=== PATIENT | female | born 1985 | race Caucasian/White ===

== ENCOUNTER → 2017-06-01 10:03 | Outpatient (CLI) | payer OTHER, SELFPAY ==
[2017-06-01 11:14] LABS: Hematocrit 37.8 % (37-47); Hemoglobin 12.7 g/dl (12.0-15.0); Mean Corp Hgb Conc 33.6 g/gl (32-36); Mean Corpuscular Hgb 31.3 pg (27.0-32.0); Mean Corpuscular Volume 93.1 fL (81-99); Platelet Count 224 K/mm3 (150-450); RBC Distribution Width CV 12.4 % (11.6-14.6); RBC Distribution Width SD 41.3 fl (35.1-43.9); Red Blood Count 4.06 M/mm3 (4.2-5.4); White Blood Count 5.5 K/mm3 (4.4-11.0)
[2017-06-01 11:20] LABS: Scan Indicated on CBC? Y/N NO
[2017-06-01 11:50] LABS: AST(SGOT) 20 U/L (15-37); Alanine Aminotransfer ALT/SGPT 24 U/L (12-78); Albumin, Serum 3.8 g/dL (3.4-5.0); Alkaline Phosphatase 49 U/L (45-117); Anion Gap 9 (5-15); BUN 17 mg/dL (7-18); BUN/Creat Ratio 22.1 RATIO (10-20); Calcium,Total 8.5 mg/dL (8.5-10.1); Chloride 103 mmol/L (98-107); Creatinine, Serum 0.77 mg/dL (0.55-1.02); EST Glomerular Filtration Rate 92 mL/min (>60); Est Glom Filt Rate - Afr Amer 112 mL/min (>60); Globulin 3.9 g/dL (2.2-4.2); Glucose 83 mg/dL (70-110); Protein, Total 7.7 g/dL (6.4-8.2); Sodium Level 137 mmol/L (136-145); Thyroid Stim Hormone (TSH) 2.02 uIU/mL (0.358-3.74)
[2017-06-04 14:15] LABS: Vitamin D 1,25-Dihydroxy 30.4 pg/mL (19.9-79.3)
== END ==
PROVIDERS: Family Provider Family Medicine; PCP Family Medicine; Visit Provider Family Medicine
DX: R63.5 Abnormal weight gain (principal)
CPT/HCPCS: 36415; 80053; 82533; 82652; 84439; 84443; 85027

== ENCOUNTER → 2017-06-17 08:14 | Outpatient (CLI) | payer OTHER, SELFPAY ==
[2017-06-19 07:18] LABS: Adrenocorticotropic Hormone 21.3 pg/mL (7.2-63.3)
== END ==
PROVIDERS: Family Provider Family Medicine; PCP Family Medicine; Visit Provider Family Medicine
DX: E27.40 Unspecified adrenocortical insufficiency (principal)
CPT/HCPCS: 82024; 82533

== ENCOUNTER → 2017-08-31 07:28 | Outpatient (CLI) | payer OTHER, SELFPAY ==
[2017-08-31 08:28] LABS: Absolute Lymphocyte Count 1.24 X10^3/ul (0.83-4.51); Absolute Neutrophil Count 2.9 X10^3/uL (2.0-7.7); Basophil# 0.02 X10^3/uL; Basophil% 0.4 % (0-1); Eosinophil# 0.08 X10^3/uL; Eosinophils% 1.7 % (0-5); Hematocrit 38.9 % (37-47); Hemoglobin 12.8 g/dl (12.0-15.0); Lymphocyte # 1.24 X10^3/ul (4.0); Mean Corp Hgb Conc 32.9 g/gl (32-36); Mean Corpuscular Hgb 30.4 pg (27.0-32.0); Mean Corpuscular Volume 92.4 fL (81-99); Mean Platelet Vol. 10.7 fl (6.2-12.0); Monocyte# 0.54 X10^3/uL; Monocyte% 11.3 % (0-10); Neutrophil # 2.88 X10^3/uL (2.7-7.7); Neutrophil % 60.4 % (47-70); Platelet Count 198 K/mm3 (150-450); RBC Distribution Width CV 13.2 % (11.6-14.6); RBC Distribution Width SD 44.6 fl (35.1-43.9); Red Blood Count 4.21 M/mm3 (4.2-5.4); White Blood Count 4.8 K/mm3 (4.4-11.0)
[2017-08-31 08:29] LABS: POSITIVE COUNT NO; POSITIVE DIFFERENTIAL NO; POSITIVE MORPHOLOGY NO
[2017-08-31 09:05] LABS: ALB/GLOB Ratio 1.1 RATIO (0.9-2.4); AST(SGOT) 17 U/L (15-37); Alanine Aminotransfer ALT/SGPT 20 U/L (13-56); Albumin, Serum 3.7 g/dL (3.2-5.0); Alkaline Phosphatase 45 U/L (45-117); Anion Gap 7 (5-15); BUN 15 mg/dL (7-18); BUN/Creat Ratio 17.6 RATIO (10-20); Calcium,Total 8.4 mg/dL (8.5-10.1); Chloride 107 mmol/L (98-107); Creatinine, Serum 0.85 mg/dL (0.55-1.02); EST Glomerular Filtration Rate 82 mL/min (>60); Est Glom Filt Rate - Afr Amer 99 mL/min (>60); Estradiol 91.6 pg/mL; Follicle Stimulating Hormone 3.5 mIU/mL; Globulin 3.4 g/dL (2.2-4.2); Glucose 77 mg/dL (74-106); Luteinizing Hormone 4.4 mIU/mL; Prolactin 12.1 ng/mL; Protein, Total 7.1 g/dL (6.4-8.2); Sodium Level 137 mmol/L (136-145)
[2017-09-02 10:10] LABS: Insulin 6.9 mU/L (2.6-37.6)
[2017-09-02 16:44] LABS: Adrenocorticotropic Hormone 14.7 pg/mL (7.2-63.3); Thyroid Peroxidase AB 17 IU/mL (0-34)
[2017-09-06 12:10] LABS: 17-Hydroxyprogesterone 180 ng/dL (.)
== END ==
PROVIDERS: Family Provider Family Medicine; PCP Family Medicine; Visit Provider Internal Medicine Endocrinology, Diabetes & Metabolism
DX: R94.6 Abnormal results of thyroid function studies (principal); R63.5 Abnormal weight gain; L70.9 Acne, unspecified; E27.40 Unspecified adrenocortical insufficiency
CPT/HCPCS: 36415; 80053; 82024; 82306; 82670; 83001; 83002; 83498; 83525; 84146; 84403; 85025; 86376

== ENCOUNTER → 2017-09-11 07:56 | Outpatient (CLI) | payer OTHER, SELFPAY ==
[2017-09-11] MEDS: Cosyntropin 0.25 MG Vial IV (08:28)
[2017-09-11 08:33] VITALS: BP 113/67; PULSE 52; RESP 18; TEMP 36.2; O2SAT 100; BMI 29.5
== END ==
PROVIDERS: Family Provider Family Medicine; PCP Family Medicine; Visit Provider Internal Medicine Endocrinology, Diabetes & Metabolism
DX: E27.40 Unspecified adrenocortical insufficiency (principal)
CPT/HCPCS: 96374; 82533; A4216; J0834

== ENCOUNTER → 2018-05-21 11:59 | Outpatient (CLI) | payer OTHER, SELFPAY ==
[2018-05-21 14:32] LABS: Anion Gap 8 (5-15); BUN 16 mg/dL (7-18); BUN/Creat Ratio 17.2 RATIO (10-20); Calcium,Total 8.7 mg/dL (8.5-10.1); Chloride 102 mmol/L (98-107); Creatinine, Serum 0.93 mg/dL (0.55-1.02); EST Glomerular Filtration Rate 74 mL/min (>60); Est Glom Filt Rate - Afr Amer 89 mL/min (>60); Glucose 96 mg/dL (74-106); Sodium Level 134 mmol/L (136-145)
--- OUTSIDE RECORDS SUMMARY | 2018-07-26 08:03 | XMS RPT_ITS ---
:1985 Author Organization OHIP Care Team Providers Name Role Phone Bull Hart Attending Unavailable Bull Hart Referring Unavailable Bull Hart Primary Care Unavailable Bull Hart Attending Unavailable Bull Hart Referring Unavailable Bull Hart Primary Care Unavailable Bull Hart Attending Unavailable Bull Hart Referring Unavailable Bull Hart Primary Care Unavailable Brittanie Swann Attending Unavailable Bull Hart Primary Care Unavailable Raghunathan, Brittanie N. Attending Unavailable Ragparish, Brittanie N. 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 [facility] R63.5(ICD-10) Hospital Repository 08/31/2017 Unknown R94.6 - Abnormal Raghunathan, Active [place] results of thyroid Brittanie N. 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 LAB L501.1000 7-18 mg/dL Normal BUN 16 LAB L501.1100 0.55-1.02 mg/dL Normal CREAT,SERUM 0.93 Result Comment: The validity of the calculated GFR AND GFRAA in patients over 70 years has not been determined. Clinical correlation is essential. LAB L501.1110 >60 mL/min Normal EST GFR 74 Result Comment: Non- GFR Calc LAB L501.1115 >60 mL/min Normal EST GFR - AA 89 Result Comment: GFR Calc LAB L501.1300 10-20 RATIO Normal BUN/CRE 17.2 LAB L501.2200 8.5-10.1 mg/dL CA Normal 8.7 LAB L501.5300 136-145 mmol/L Low NA 134 LAB L501.5600 3.5-5.1 mmol/L K Normal 4.0 LAB L501.5900 98-107 mmol/L CL Normal 102 LAB L501.6100 21.0-32.0 mmol/L Normal CO2 24.0 LAB L501.6200 5-15 Normal GAP 8 Performed By: #### L500.2500 #### [facility] [address] [place], [address] CORTISOL SERUM Collected: 09/11/2017 Status: F Source: OSSEO 9:30 AM [facility] REPOSITORY Order Comment: BASELINE OR POST MEDICATION STIMULATION?: 60 Min Post MED Stimulati Time Medication Given: 0830 TYPE CODE TESTS RESULT OUT OF REFERENCE UNITS RANGE LAB L509.6000 3.09-22.40 ug/dL High CORTISOL 26.60 Result Comment: Adult (AM) 4.30 - 22.40 ug/dL Adult (PM) 3.09 - 16.66 ug/dL Performed By: #### L509.6000 #### [facility] [address] [place], [place], [address] CORTISOL SERUM Collected: 09/11/2017 Status: F Source: OSSEO 9:05 AM [facility] REPOSITORY Order Comment: Send Results To: DR. SWANN FAX [phone] Has pt arrived? Y BASELINE OR POST MEDICATION STIMULATION?: 30 Min Post MED Stimulati Time Medication Given: 0830 TYPE CODE TESTS RESULT OUT OF REFERENCE UNITS RANGE LAB L509.6000 3.09-22.40 ug/dL High CORTISOL 22.90 Result Comment: Adult (AM) 4.30 - 22.40 ug/dL Adult (PM) 3.09 - 16.66 ug/dL Performed By: #### L509.6000 #### [facility] [address] [place], [address] CBC W/DIFF, AUTOMATED Collected: 08/31/2017 Status: F Source: OSSEO 7:48 AM [facility] REPOSITORY TYPE CODE TESTS RESULT OUT OF RANGE REFERENCE UNITS LAB L100.1000 4.4-11.0 K/mm3 Normal WBC 4.8 LAB L100.1200 4.2-5.4 M/mm3 Normal RBC 4.21 LAB L100.1300 12.0-15.0 g/dl Normal HGB 12.8 LAB L100.1400 37-47 % Normal HCT 38.9 LAB L100.1500 81-99 fL Normal MCV 92.4 LAB L100.1600 27.0-32.0 pg Normal MCH 30.4 LAB L100.1700 32-36 g/gl Normal MCHC 32.9 LAB L100.1810 11.6-14.6 % Normal RDW CV 13.2 LAB L100.1820 35.1-43.9 fl High RDW SD 44.6 LAB L100.1900 150-450 K/mm3 Normal PLT 198 LAB L100.2000 6.2-12.0 fl Normal MPV 10.7 LAB L100.2100 47-70 % Normal NEUT% 60.4 LAB L100.2200 19-41 % Normal LY% 26.0 LAB L100.2300 0-10 % High MONO% 11.3 LAB L100.2400 0-5 % Normal EO% 1.7 LAB L100.2500 0-1 % Normal BASO% 0.4 LAB L100.2550 0.0-0.9 % Normal IM GRAN % 0.200 Result Comment: IG% - Immature Granulocytes (promyelocytes, myelocytes and metamyelocytes) > 1% indicates that a LEFT SHIFT is Present. LAB L100.2620 2.0-7.7 X10 3/uL Normal Absolute Neut 2.9 LAB L100.2720 0.83-4.51 X10 3/ul Normal Absolute Lymph 1.24 Performed By: #### L100.0100 #### [facility] [address] [place], [address] COMPREHENSIVE METABOLIC Collected: 08/31/2017 Status: F Source: [place] LISETH 7:41 AM [facility] REPOSITORY TYPE CODE TESTS RESULT OUT OF RANGE REFERENCE UNITS LAB L501.0100 74-106 mg/dL Normal GLU 77 Result Comment: Please note revised GLUCOSE reference range effective 2017. LAB L501.1000 7-18 mg/dL Normal BUN 15 LAB L501.1100 0.55-1.02 mg/dL Normal CREAT,SERUM 0.85 Result Comment: The validity of the calculated GFR AND GFRAA in patients over 70 years has not been determined. Clinical correlation is essential. LAB L501.1110 >60 mL/min Normal EST GFR 82 Result Comment: Non- GFR Calc LAB L501.1115 >60 mL/min Normal EST GFR - AA 99 Result Comment: GFR Calc LAB L501.1300 10-20 RATIO Normal BUN/CRE 17.6 LAB L501.1500 6.4-8.2 g/dL T Normal PROT 7.1 LAB L501.1800 3.2-5.0 g/dL Normal ALB 3.7 LAB L501.1950 2.2-4.2 g/dL Normal GLOB 3.4 LAB L501.2000 0.9-2.4 RATIO Normal A/G 1.1 LAB L501.2200 8.5-10.1 mg/dL Low CA 8.4 LAB L501.4100 15-37 U/L Normal AST 17 LAB L501.4305 45-117 U/L Normal ALK P 45 LAB L501.4405 13-56 U/L Normal ALT 20 LAB L501.4600 0.20-1.00 mg/dL T Normal BILI 0.60 LAB L501.5300 136-145 mmol/L NA Normal 137 LAB L501.5600 3.5-5.1 mmol/L K Normal 4.0 LAB L501.5900 98-107 mmol/L CL Normal 107 LAB L501.6100 21.0-32.0 mmol/L Normal CO2 23.0 LAB L501.6200 5-15 Normal GAP 7 Performed By: #### L500.4050, L3100.5125, L3100.5170, L3100.5420, L3300.1750 #### [facility] [address] [place], [address] FOLLICLE STIMULATING Collected: 08/31/2017 Status: F Source: [place] HORMONE 7:41 AM [facility] REPOSITORY TYPE CODE TESTS RESULT OUT OF RANGE REFERENCE UNITS LAB L3100.5125 mIU/mL Normal FSH 3.5 Result Comment: NORMAL REFERENCE RANGES FEMALE FOLLICULAR 2.3 - 12.6 mIU/mL MID-CYCLE PEAK 5.2 - 17.5 mIU/mL LUTEAL 1.7 - 12.9 mIU/mL POST-MENOPAUSAL ON MHT 5.9 - 72.8 mIU/mL NOT ON MHT 12.7 - 132.2 mlU/mL MALE 0.7 - 10.8 mIU/mL NEW TEST METHOD AND REFERENCE RANGES SEPTEMBER 24, 2011 Performed By: #### L500.4050, L3100.5125, L3100.5170, L3100.5420, L3300.1750 #### [facility] [address] [place], [place], [address] LUTEINIZING HORMONE Collected: 08/31/2017 Status: F Source: OSSEO 7:41 [facility] REPOSITORY TYPE CODE TESTS RESULT OUT OF RANGE REFERENCE UNITS LAB L3100.5170 mIU/mL Normal LH 4.4 Result Comment: NORMAL REFERENCE RANGES FEMALE FOLLICULAR 1.9 - 26.2 mIU/mL MID-CYCLE PEAK 22.8 - 76.1 mIU/mL LUTEAL 0.6 - 16.6 mIU/mL POST-MENOPAUSAL ON MHT 1.1 - 52.4 mIU/mL NOT ON MHT 8.6 - 61.8 mIU/mL MALE 1.2 - 10.6 mIU/mL NEW TEST METHOD AND REFERENCE RANGES SEPTEMBER 24, 2011 Performed By: #### L500.4050, L3100.5125, L3100.5170, L3100.5420, L3300.1750 #### [facility] [address] [place], [place], [address] PROLACTIN Collected: 08/31/2017 Status: F Source: OSSEO 7:41 [facility] REPOSITORY TYPE CODE TESTS RESULT OUT OF RANGE REFERENCE UNITS LAB L3100.5420 ng/mL Normal PROLACTIN 12.1 Result Comment: NORMAL REFERENCE RANGES FEMALE NON- 2.2 - 30.3 ng/mL 8.1 - 347.6 ng/mL POST-MENOPAUSAL 0.7 - 31.5 ng/mL MALE 2.5 - 17.4 ng/mL NEW TEST METHOD AND REFERENCE RANGES SEPTEMBER 24, 2011 Performed By: #### L500.4050, L3100.5125, L3100.5170, L3100.5420, L3300.1750 #### [facility] [address] [place], [address] ESTRADIOL Collected: 08/31/2017 Status: F Source: OSSEO 7:41 AM [facility] REPOSITORY TYPE CODE TESTS RESULT OUT OF RANGE REFERENCE UNITS LAB L3300.1750 pg/mL Normal ESTRADIOL 91.6 Result Comment: NORMAL REFERENCE RANGES FEMALE FOLLICULAR 21.4 - 164.8 pg/mL MID-CYCLE PEAK 49.9 - 367.2 pg/mL LUTEAL 40.2 - 259.0 pg/mL POST-MENOPAUSAL ON MHT <11.0 - 462.1 pg/mL NOT ON MHT <11.0 - 58.3 pg/mL MALE <11.0 - 52.5 pg/mL NOTE: [facility] HAS CONFIRMED THE DRUG FULVETRANT (FASLODEX) MAY CAUSE FALSELY ELEVATED ESTRADIOL RESULTS WHEN USING THIS TEST METHOD. IF PATIENT IS TAKING FULVESTRANT AN ALTERNATIVE METHOD SHOULD BE USED TO DETERMINE ESTRADIOL CONCENTRATION. Performed By: #### L500.4050, L3100.5125, L3100.5170, L3100.5420, L3300.1750 #### [facility] [address] [place], [address] VITAMIN D,25 HYDROXY Collected: 08/31/2017 Status: F Source: OSSEO 7:41 AM [facility] REPOSITORY TYPE CODE TESTS RESULT OUT OF REFERENCE UNITS RANGE LAB L506.1000 29.95-100.01 ng/mL Low Vitamin D 19.0 25-OH Result Comment: Vitamin D 25(OH) Status Range Deficiency <20 ng/mL (50nmol/L) Insuffciency 20 - 30 ng/mL (50 - 75 nmol/L) Sufficiency 30 - 100 ng/mL (75 - 250 nmol/L) Toxicity >100 ng/mL (>250 nmol/L) Performed By: #### L506.1000, L509.3000, [id number] #### [facility] [address] [place], [address] TESTOSTERONE, SERUM TOTAL Collected: 08/31/2017 Status: F Source: OSSEO 7:41 AM [facility] REPOSITORY TYPE CODE TESTS RESULT OUT OF REFERENCE UNITS RANGE LAB L509.3000 ng/dL Testosterone Normal 22.47 Result Comment: NORMAL REFERENCE RANGES MALE AGE <50 123.06 - 813.86 ng/dL MALE AGE >50 89.98 - 780.10 ng/dL FEMALE PREMENOPAUSE AGE 21 - 60 9.01 - 47.94 ng/dL FEMALE POSTMENOPAUSE AGE 45 - 89 <7.00 - 45.62 ng/dL REFERENCE RANGE AND METHODOLOGY CHANGED 04/24/2017 Performed By: #### L506.1000, L509.3000, [id number] #### [facility] [address] [place], [place], [address] INSULIN Collected: 08/31/2017 Status: F Source: OSSEO 7:41 AM [facility] REPOSITORY TYPE CODE TESTS RESULT OUT OF RANGE REFERENCE UNITS LAB [id number] 2.6-37.6 mU/L Normal Insulin 6.9 Result Comment: Please Note: INSULIN METHOD AND REFERENCE RANGE CHANGE Effective 05/16/2017. Performed By: #### L506.1000, L509.3000, [id number] #### [facility] [address] [place], [place], [address] ADRENOCORTICOTROPIC HORMONE Collected: Status: F Source: OSSEO 08/31/2017 7:41 AM [facility] REPOSITORY Order Comment: Has Patient had X-rays with Contrast this admission? N TYPE CODE TESTS RESULT OUT OF RANGE REFERENCE UNITS LAB L3300.1000 7.2-63.3 pg/mL Normal ACTH 4440 14.7 Result Comment: ACTH reference interval for samples collected between 7 and 10 AM. Performed By: #### L3300.1000, L3300.6900 #### [facility] (refer to report for specific site) refer to report for address and phone number THYROID PEROXIDASE AB Collected: 08/31/2017 Status: F Source: OSSEO 7:41 AM [facility] REPOSITORY Order Comment: Has Patient had X-rays with Contrast this admission? N TYPE CODE TESTS RESULT OUT OF RANGE REFERENCE UNITS LAB L3300.6900 0-34 IU/mL Normal TPO AB 17 7876 Result Comment: Performed at: [address] [id number] Music Journalist: Contreras Morales PhD, Phone: [phone] Performed By: #### L3300.1000, L3300.6900 #### [facility] (refer to report for specific site) refer to report for address and phone number [phone] Collected: Status: F Source: [place] 08/31/2017 7:41 AM [facility] REPOSITORY Order Comment: Has Patient had Radioactive Injection for X-ray?: N TYPE CODE TESTS RESULT OUT OF RANGE REFERENCE UNITS LAB L3100.9000 . ng/dL Normal HYDROXPROG 17 180 Result Comment: Adult Female Follicular 15 - 70 Luteal 35 - 290 This test was developed and its performance characteristics determined by [facility]. It has not been cleared or approved by the Food and Drug Administration. Performed at: [address] [id number] Music Journalist: Lc Fernández MD, Phone: [phone] Performed By: #### L3100.9000 #### [facility] (refer to report for specific site) refer to report for address and phone number CORTISOL SERUM Collected: 06/17/2017 Status: F Source: [place] 8:30 AM [facility] REPOSITORY Order Comment: Comments: AM TYPE CODE TESTS RESULT OUT OF RANGE REFERENCE UNITS LAB L509.6000 3.09-22.40 ug/dL Normal CORTISOL 9.10 Result Comment: Adult (AM) 4.30 - 22.40 ug/dL Adult (PM) 3.09 - 16.66 ug/dL Performed By: #### L509.6000 #### [facility] [address] [place] [address], [address] ADRENOCORTICOTROPIC HORMONE Collected: Status: F Source: [place] 06/17/2017 8:29 AM [facility] REPOSITORY Order Comment: Order Date: 06/04/17 Order Info: 2141-0 - ACTH Has Patient had X-rays with Contrast this admission? N Comments: AM TYPE CODE TESTS RESULT OUT OF RANGE REFERENCE UNITS LAB L3300.1000 7.2-63.3 pg/mL Normal ACTH 4440 21.3 Result Comment: ACTH reference interval for samples collected between 7 and 10 AM. Performed at: [address] [id number] Music Journalist: Contreras Morales PhD, Phone: [phone] Performed By: #### L3300.1000 #### [facility] (refer to report for specific site) refer to report for address and phone number CBC-COMPLETE BLOOD CNT Collected: 06/01/2017 Status: F Source: [place] NO DIFF 10:12 AM [facility] REPOSITORY TYPE CODE TESTS RESULT OUT OF RANGE REFERENCE UNITS LAB L100.1000 4.4-11.0 K/mm3 Normal WBC 5.5 LAB L100.1200 4.2-5.4 M/mm3 Low RBC 4.06 LAB L100.1300 12.0-15.0 g/dl Normal HGB 12.7 LAB L100.1400 37-47 % Normal HCT 37.8 LAB L100.1500 81-99 fL Normal MCV 93.1 LAB L100.1600 27.0-32.0 pg Normal MCH 31.3 LAB L100.1700 32-36 g/gl Normal MCHC 33.6 LAB L100.1810 11.6-14.6 % Normal RDW CV 12.4 LAB L100.1820 35.1-43.9 fl Normal RDW SD 41.3 LAB L100.1900 150-450 K/mm3 Normal PLT 224 LAB L100.2000 6.2-12.0 fl Normal MPV 11.0 Performed By: #### L100.0500 #### [facility] [address] [place], [address] COMPREHENSIVE METABOLIC Collected: 06/01/2017 Status: F Source: [place] PROFIL 10:12 AM [facility] REPOSITORY TYPE CODE TESTS RESULT OUT OF RANGE REFERENCE UNITS LAB L501.0100 70-110 mg/dL Normal GLU 83 LAB L501.1000 7-18 mg/dL Normal BUN 17 LAB L501.1100 0.55-1.02 mg/dL Normal 0.77 CREAT,SERUM Result Comment: The validity of the calculated GFR AND GFRAA in patients over 70 years has not been determined. Clinical correlation is essential. LAB L501.1110 >60 mL/min Normal EST GFR 92 Result Comment: Non- GFR Calc LAB L501.1115 >60 mL/min Normal EST GFR - AA 112 Result Comment: GFR Calc LAB L501.1300 10-20 RATIO High BUN/CRE 22.1 LAB L501.1500 6.4-8.2 g/dL T Normal PROT 7.7 LAB L501.1800 3.4-5.0 g/dL Normal ALB 3.8 Result Comment: Please note revised Albumin AND Globulin reference range effective 2017. LAB L501.1950 2.2-4.2 g/dL Normal GLOB 3.9 LAB L501.2000 0.9-2.4 RATIO Normal A/G 1.0 LAB L501.2200 8.5-10.1 mg/dL Normal CA 8.5 LAB L501.4100 15-37 U/L Normal AST 20 LAB L501.4305 45-117 U/L Normal ALK P 49 LAB L501.4405 12-78 U/L Normal ALT 24 LAB L501.4600 0.20-1.00 mg/dL Normal T BILI 0.40 LAB L501.5300 136-145 mmol/L Normal NA 137 LAB L501.5600 3.5-5.1 mmol/L Normal K 4.0 LAB L501.5900 98-107 mmol/L Normal CL 103 LAB L501.6100 21.0-32.0 mmol/L Normal CO2 25.0 LAB L501.6200 5-15 Normal GAP 9 Performed By: #### L500.4050, L501.9520, L506.0400 #### [facility] [address] [place], [place], [id number] THYROID STIM HORMONE Collected: 06/01/2017 Status: F Source: [place] (TSH) 10:12 AM [facility] REPOSITORY TYPE CODE TESTS RESULT OUT OF RANGE REFERENCE UNITS LAB L501.9520 0.358-3.74 uIU/mL Normal TSH 2.02 Performed By: #### L500.4050, L501.9520, L506.0400 #### [facility] [address] [place], [place], [address] T4 FREE DIRECT Collected: 06/01/2017 Status: F Source: [place] 10:12 AM [facility] REPOSITORY TYPE CODE TESTS RESULT OUT OF RANGE REFERENCE UNITS LAB L506.0400 0.76-1.46 ng/dL Normal T4 FREE 1.10 DIRECT Performed By: #### L500.4050, L501.9520, L506.0400 #### [facility] [address] [place], [address] CORTISOL SERUM Collected: 06/01/2017 Status: F Source: [place] 10:12 AM [facility] REPOSITORY TYPE CODE TESTS RESULT OUT OF REFERENCE UNITS RANGE LAB L509.6000 3.09-22.40 ug/dL Low CORTISOL 2.40 Result Comment: Adult (AM) 4.30 - 22.40 ug/dL Adult (PM) 3.09 - 16.66 ug/dL Performed By: #### L509.6000 #### [facility] [address] [place], [address] VITAMIN D 1,25-DIHYDROXY Collected: 06/01/2017 Status: F Source: [place] 10:12 AM [facility] REPOSITORY TYPE CODE TESTS RESULT OUT OF RANGE REFERENCE UNITS LAB L3300.0960 19.9-79.3 pg/mL Normal VITD 1,25 30.4 [address] Result Comment: Performed at: - [facility] [id number] Music Journalist: Lc Fernández MD, Phone: [phone] Performed By: #### L3300.0960 #### [facility] (refer to report for specific site) refer to report for address and phone number ALLERGIES ALLERGIES DATE TYPE / CODE NAME / CODE REACTION SEVERITY SOURCE 09/11/2017 Drug No Known Unknown [facility] Allergy/4160 Allergies/F00 Hospital 33075(SNOMED [id number](RXNOR Repository CT) M) ENCOUNTERS ENCOUNTERS ADMIT/DISCHARGE ACCOUNT ADMITTING ENCOUNTER LOCATION SOURCE NUMBER CLASS 05/21/2018 [id number] Ambulatory [place] 0 [facility] ing:MTLAB Repository 09/11/2017 [id number] Ambulatory [place] 3 [facility] ing:MEDOUTP Repository 08/31/2017 [id number] Ambulatory [place] 7 [facility] ing:LAB Repository 06/17/2017 [id number] Ambulatory [place] 9 [facility] ing:MTLAB Repository 06/01/2017 [id number] Ambulatory [place] 2 [facility] ing:LAB Repository PAYERS PAYERS ENCOUNTER GUARANTOR PAYER SUBSCRIBER SOURCE 05/21/2018 COURTNEY STOREY Primary COURTNEY Cameron N [place] Insurance:CIGNAPolicy BARNESDOB: [place], [place] Number: [id number] [address]Bfe: (344) [id number] Repository [phone] () Date:2173-57-68[address], [place] [address]BH: 05/21/2018 Secondary NOT GIVENUNK [place] Insurance:SELF PAY [facility] Number: Effective Repository Date:2018-05-21 09/11/2017 COURTNEY STOREY Primary COURTNEY Cameron N [place] Insurance:CIGNAPolicy BARNESDOB: [place], [place] Number: [id number] [address]Ocg: [phone] [id number] Repository [phone] () Date:4056-21-35NZ [address], [place] [address]SG: 09/11/2017 Secondary NOT GIVENUNK [place] Insurance:SELF PAY [facility] Number: Effective Repository Date:2017-09-09 08/31/2017 [facility] Courtney [address] Insurance:CIGNAPolicy BarnesDOB: [facility] [place] Number: [id number] [id number] Repository [address]Pin: [phone]) Date:8212-17-21[phone] () [id number], [place] [address]EN: 08/31/2017 Secondary NOT GIVENUNK [place] Insurance:SELF PAY [facility] Number: Effective Repository Date:2017-08-31 06/17/2017 [facility] Courtney Cameron [address] Insurance:CIGNAPolicy BarnesDOB: [facility] [place] Number: [id number], [place] [id number] Repository [address]Uec: [phone]) Date:9795-69-25EJ [phone] () [id number], [place] [address]TA: 06/17/2017 Secondary NOT GIVENUNK [place] Insurance:SELF PAY [facility] Number: Effective Repository Date:2017-06-17 06/01/2017 Courtney Duran Primary [facility]ney [facility] [facility] PiedmontDOB: [facility] Number: [id number], [place] [id number] Repository [address]Slr: ([phone]) Date:4951-32-83PI [phone] () 344[address]CEFACTRCNRF, [place] [address]WD: 06/01/2017 Secondary NOT GIVENUNK [place] Insurance:SELF PAY [facility] Number: Effective Repository Date:2017-06-01
== END ==
PROVIDERS: Family Provider Family Medicine; PCP Family Medicine; Referring Provider Family Medicine; Visit Provider Family Medicine
DX: L70.9 Acne, unspecified (principal)
CPT/HCPCS: 36415; 80048

== ENCOUNTER 2019-07-15 17:30 | Outpatient (RCR) | payer OTHER, SELFPAY ==
--- NOTE | 2019-07-13 11:47 | HP.PTEVAL_ITS ---
Patient's Visit Information VIVIENNE DESAI is a 34 year old F referred to Physical Therapy by Mich Hart MD with a diagnosis of B almendarez splints, B pes planus, need for running analysis. Date of Evaluation: 07/08/19 Physical Therapist: Lane Patton DPT - Visit Plan Frequency: 1-2x /Week Duration: 4-6 Weeks Plan: Start with DN to post tib, calf stretching, foam rolling, eccentric strengthening of calves, foot intrinsic strengthening. Pt. to have running/gait analysis completed. - Subjective Subjective: Pt. is here today for her initial evaluation with diagnosis of almendarez splints bilaterally, pes planus bilaterally and need for gait/running analysis. Pt. reports having increased pain for a few weeks now as she has started training for a 2 marathon. Pt. reports having increased pain at B medial calves. Pt. has increased pain with walking, any attempts at running, stairs. Pt. has custom orthotics. Pt. has been running upto 20 miles a week, but over the past two weeks has only been able to walk run upto 2 miles at a time. Pt. reports having increased pain with push off portion of gait/running. Pt. is hopeful to return back to running in order to get back to her training with / marathon being next month. - Pain R medial calf Pain Intensity (Out of 10): 2 Pain Intensity Range: 1, 7 L medial calf Pain Intensity (Out of 10): 2 Pain Intensity Range: 1, 7 - Objective POSTURE: Pt. had normal posture in stnace. Pt. has marked pes planus in bilateral feet, worse in SLS. PALPATION: Pt. has marked tenderness at post tib muscle belly and along tendon. NEURO: Pt. has normal sensation and normal DTR of bilateral LEs. ROM: Pt. has normal ROM of bilateral ankles/knees and hips without increase in symptoms. Except patient has tight calves with 10deg of R DF and 12deg of L DF. MMT: Pt. has 5/5 strength throughout BLEs, expcet 4/5 B foot intrinsic strength, 4+/5 hipa bd and 4+/5 hip extension. Hip ER/IR 4/5 bilaterally. Core strength-poor+. - Goals Goal 1:: LTG: Pt. to be I with HEP for stretching/strengtheing of ankle/foot. Goal Time Frame: 4-6 Weeks Goal 2:: STG: pt. to walk unlimited distances without increase in symptoms. Goal Time Frame: 2 Weeks Goal 3:: LTG: Pt. to have increased B ankle DF to 15deg actively. Goal Time Frame: 4-6 Weeks Goal 4:: LTG: Pt. to have increased strength of post tib to 5/5 without increase in symptoms. Goal Time Frame: 4-6 Weeks Goal 5:: LTG: pt. to get back to running with 2-3 miles without increase in symptoms. Goal Time Frame: 4-6 Weeks - Rehabilitation Potential Physical Therapy Diagnosis: Pt. has signs and symptoms consistent with B almendarez splints, and B pes planus. Pt. has pain at post tib tendon and muscle belly, most likely due to increase load/stress applied to this region with running with pes planus after not running for a longer period of time. Pt. would benefit from PT to reduce symptoms. Rehabilitation Potential: Excellent - Anticipated Interventions Patient/Client Instruction: Educate patient on: Condition, Plan of Care, Risk Factors For the Purpose of:: To facilitate caregiver knowledge, To improve self management, To prevent re-injury, To improve ability to perform tasks related to life management, To improve tolerance to ADL's Therapeutic Exercise to Include: Strength training, Power training, Endurance training, Balance training, Body mechanics, Postural training, Flexibilty training, Gait and locomotor training, Passive ROM, Active ROM, Dynamic Lumbar Stabilization For the Purpose of:: To decrease pain, To increase ROM, To improve nutrient delivery to tissue, To increase oxygenation perfusion, To improve muscle performance and motor function, To improve ability to perform ADL's, To increase tolerance to activity/condition/position, To improve gait and locomotor functions, To improve health of tissue, To decrease soft tissue restriction, To increase flexibility/ROM, To improve endurance Functional Training to Include: Functional sports training, Gait training For the Purpose of:: To improve ability to perform ADL's, To increase tolerance to activity/condition/position, To decrease level of supervision to perform tasks, To improve ability of physical actions for home/community/work/leisure Manual Therapy Techniques to Include: Mobilization, Functional dry needling For the Purpose of:: To decrease pain, To increase ROM, To improve nutrient delivery to tissue, To increase oxygenation perfusion, To improve muscle performance and motor function Thank you for the opportunity to evaluate your patient. For Medicare and Medicare HMO plans, please review the plan of care and approve it. It will need to be FAXED BACK to us at [phone] for Medicare purposes. For Medicare only, by signing this I certify the plan of care. Please let me know if there are questions or concerns regarding this plan of care. Physician Signature: Date:
== END 2019-07-15 19:00 | disposition home or self-care (01) ==
LOC: PT 17:30
PROVIDERS: PCP Family Medicine; Referring Provider Family Medicine; Visit Provider Family Medicine
DX: S86.892D Other injury of other muscle(s) and tendon(s) at lower leg level, left leg, subsequent encounter (principal); S86.891D Other injury of other muscle(s) and tendon(s) at lower leg level, right leg, subsequent encounter; M21.40 Flat foot [pes planus] (acquired), unspecified foot
CPT/HCPCS: 97110; 97161

== ENCOUNTER → 2019-07-29 15:14 | Outpatient (CLI) | payer OTHER, SELFPAY ==
[2017-09-11 08:33] VITALS: BMI 29.5
[2019-07-29 17:41] LABS: Anion Gap 7 (5-15); BUN 13 mg/dL (7-18); BUN/Creat Ratio 13.3 RATIO (10-20); Calcium,Total 9.1 mg/dL (8.5-10.1); Chloride 104 mmol/L (98-107); Creatinine, Serum 0.98 mg/dL (0.55-1.02); EST Glomerular Filtration Rate 69 mL/min (>60); Est Glom Filt Rate - Afr Amer 84 mL/min (>60); Glucose 82 mg/dL (74-106); Sodium Level 138 mmol/L (136-145)
== END ==
PROVIDERS: PCP Family Medicine; Referring Provider Family Medicine; Visit Provider Family Medicine
DX: K75.9 Inflammatory liver disease, unspecified (principal)
CPT/HCPCS: 36415; 80048

== ENCOUNTER → 2020-03-23 17:40 | Outpatient (CLI) | payer OTHER, SELFPAY | PROVIDERS: PCP Family Medicine; Referring Provider Family Medicine; Visit Provider Family Medicine | DX: U07.1 COVID-19 (principal) | CPT/HCPCS: 87635; C9803; U0003 ==

== ENCOUNTER → 2020-08-04 13:07 | Outpatient (CLI) | payer OTHER, SELFPAY ==
[2020-08-04 15:20] LABS: Vitamin B12 339 pg/mL (211-911)
[2020-08-04 15:30] LABS: Anion Gap 7 (5-15); BUN 19 mg/dL (7-18); BUN/Creat Ratio 20.5 RATIO (10-20); Calcium,Total 8.8 mg/dL (8.5-10.1); Chloride 102 mmol/L (98-107); Creatinine, Serum 0.93 mg/dL (0.55-1.02); EST Glomerular Filtration Rate 73 mL/min (>60); Est Glom Filt Rate - Afr Amer 88 mL/min (>60); Glucose 77 mg/dL (74-106); Iron 95 ug/dL (50-170); Potassium 3.9 mmol/L (3.5-5.1); Sodium Level 136 mmol/L (136-145)
== END ==
PROVIDERS: PCP Family Medicine; Visit Provider Family Medicine
DX: F41.8 Other specified anxiety disorders (principal); E55.9 Vitamin D deficiency, unspecified
CPT/HCPCS: 36415; 80048; 82306; 82607; 83540; 84443